=== PATIENT | male | born 1935 | race Caucasian/White ===

== ENCOUNTER 2018-08-31 11:03 | Inpatient (IN) | payer OTHER ==
[2018-08-31 11:23] VITALS: BMI 33.3
--- NOTE | 2018-08-31 11:41 | PDOC ---
History of Present Illness - History of Present Illness Initial Comments: 08/31/18 12:12 The patient is a 83 year old male, DNR, with a significant past medical history of obesity, bedbound, AFib on Coumadin, hypertension, hypothyroidism, stage 3 pressure ulcer of left buttock, neuropathy, groin cellulitis and neoplasm of the skin, who presents to the emergency department with suspicion for aspiration pneumonia this morning. As per usp, the patients breath sounds we poor this morning. The patient denies any complaints at this time. The patient denies chest pain, shortness of breath, headache and dizziness. The patient denies fever, chills, nausea, vomit, diarrhea and constipation. The patient denies dysuria, frequency, urgency and hematuria. Allergies: NKDA <Mariela Ortiz - Last Filed: 08/31/18 13:08> - General History Source: Patient Exam Limitations: No Limitations <Laina Pope - Last Filed: 09/01/18 21:22> - General Chief Complaint: Shortness of Breath Stated Complaint: SOB Time Seen by Provider: 08/31/18 11:41 Past History <Mariela Ortiz - Last Filed: 08/31/18 13:08> - Past Medical History Cardiac Disorders: Yes (AFIB) COPD: No HTN: Yes Other medical history: STAGE 3 LT ISHIAL AREA - Suicide/Smoking/Psychosocial Hx Smoking History: Unknown if ever smoked Have you smoked in the past 12 months: No Information on smoking cessation initiated: No Hx Alcohol Use: No Drug/Substance Use Hx: No <Laina Pope - Last Filed: 09/01/18 21:22> - Past Medical History Allergies/Adverse Reactions: Allergies Allergy/AdvReac Type Severity Reaction Status Date / Time No Known Allergies Allergy Verified 08/31/18 15:40 Home Medications: Ambulatory Orders Aa/Hydrolyzed Collagen, Whey [Lps 15-30 Liquid] 30 ml PO DAILY 09/01/18 Acetaminophen 1,000 mg PO BID 09/01/18 Amlodipine Besylate [Norvasc -] 10 mg PO DAILY 09/01/18 Cholecalciferol (Vitamin D3) [Vitamin D3] 1,000 unit PO DAILY 09/01/18 Gabapentin 600 mg PO BID 09/01/18 Lisinopril 5 mg PO DAILY 09/01/18 Warfarin Sodium [Coumadin] 4 mg PO HS 09/01/18 Review of Systems - Review of Systems Able to Perform ROS?: Yes Comments:: 08/31/18 12:12 CONSTITUTIONAL: Absent: fever, no chills, no fatigue EYES: Absent: visual changes ENT: Absent: ear pain, no sore throat CARDIOVASCULAR: Absent: chest pain, no palpitations RESPIRATORY: Absent: cough, no SOB GASTROINTESTINAL: Absent: abdominal pain, no nausea, no vomiting, no constipation, no diarrhea GENITOURINARY: Absent: dysuria, no frequency, no hematuria MUSCULOSKELETAL: Absent: back pain, no arthralgia, no myalgia SKIN: Absent: rash NEURO: Absent: headache <Mariela Ortiz - Last Filed: 08/31/18 13:08> *Physical Exam - Vital Signs Last Vital Signs Temp Pulse Resp BP Pulse Ox 98.1 F 88 26 H 118/54 L 86 L 08/31/18 11:18 08/31/18 11:18 08/31/18 11:18 08/31/18 11:18 08/31/18 11:18 - Physical Exam Comments: 08/31/18 12:13 GENERAL: The patient is in no acute distress. Awake and Alert. HEAD: Normal with no signs of trauma. EYES: PERRLA, EOMI, sclera anicteric, conjunctiva clear. ENT: Ears normal, nares patent, oropharynx clear without exudates. Moist mucous membranes. NECK: Normal range of motion, supple without lymphadenopathy, JVD, or masses. LUNGS: (+) Rhonchorous breath sounds, gurgling breathing. No wheezes HEART:Regular rate and rhythm, normal S1 and S2 without murmur, rub or gallop. ABDOMEN: Soft, nontender, normoactive bowel sounds. No guarding, no rebound. No masses palpable. GENITAL: (+) penile redness, tenderness, discharge of pus and blood. EXTREMITIES: Normal range of motion, no edema. No clubbing or cyanosis. No erythema, or tenderness. NEUROLOGICAL: Cranial nerves II through XII grossly intact. Normal speech. No focal neurological deficits. MUSCULOSKELETAL: Back non-tender to palpation, no CVA tenderness SKIN: Warm, Dry, normal turgor, no rashes or lesions noted. <Mariela Ortiz - Last Filed: 08/31/18 13:08> - Vital Signs Last Vital Signs Temp Pulse Resp BP Pulse Ox 98.1 F 88 26 H 118/54 L 86 L 08/31/18 11:18 08/31/18 11:18 08/31/18 11:18 08/31/18 11:18 08/31/18 11:18 <Laina Pope - Last Filed: 09/01/18 21:22> Moderate Sedation - Procedure Monitoring Vital Signs: Procedure Monitoring Vital Signs Temperature 98.1 F 08/31/18 11:18 Pulse Rate 88 08/31/18 11:18 Respiratory Rate 26 H 08/31/18 11:18 Blood Pressure 118/54 L 08/31/18 11:18 O2 Sat by Pulse Oximetry (%) 86 L 08/31/18 11:18 <Mariela Ortiz - Last Filed: 08/31/18 13:08> - Procedure Monitoring Vital Signs: Procedure Monitoring Vital Signs Temperature 98.1 F 08/31/18 11:18 Pulse Rate 88 08/31/18 11:18 Respiratory Rate 26 H 08/31/18 11:18 Blood Pressure 118/54 L 08/31/18 11:18 O2 Sat by Pulse Oximetry (%) 86 L 08/31/18 11:18 <Laina Pope - Last Filed: 09/01/18 21:22> ED Treatment Course - LABORATORY CBC & Chemistry Diagram: 08/31/18 12:00 08/31/18 12:00 - ADDITIONAL ORDERS Additional order review: Laboratory Results 08/31/18 12:02 POC Glucometer 115 08/31/18 12:02 POC Glucometer 115 <Mariela Ortiz - Last Filed: 08/31/18 13:08> - LABORATORY CBC & Chemistry Diagram: 09/01/18 07:24 09/01/18 07:24 <Laina Pope - Last Filed: 09/01/18 21:22> Medical Decision Making - Medical Decision Making 08/31/18 12:59 83 yo M who was sent to the ER due to possible aspiration Was noted at the usp to become hypoxic Has audible gurgling The patient denies difficulty breathing Laboratory Tests 08/31/18 08/31/18 08/31/18 12:00 12:00 12:00 WBC 9.2 Hgb 11.9 Hct 36.4 Plt Count 233 PT with INR 30.40 H INR 2.55 H PTT (Actin FS) 40.5 H VBG pH 7.30 L POC VBG pCO2 54.7 H POC VBG pO2 29.5 Mixed VBG HCO3 26.2 H EKG: Afib rate of 87 bpm, axis nml, RBBB, no st elevation 08/31/18 13:39 Laboratory Tests 08/31/18 12:00 Sodium 142 Potassium 4.6 Chloride 108 H Carbon Dioxide 29 BUN 26 H Creatinine 1.0 Random Glucose 119 H Creatine Kinase 38 CK-MB (CK-2) < 1.0 Troponin I 0.03 09/01/18 21:15 CXR read by radiologist as nml Will do CT chest for further evaluation Will admit to hospitalist Clinical impression: Possible aspiration pneumonia, initial presentation <Laina Pope - Last Filed: 09/01/18 21:22> *DC/Admit/Observation/Transfer - Attestations Scribe Attestion: 08/31/18 12:13 Documentation prepared by Mariela Ortiz, acting as medical information specialist for Laina Pope MD <Mariela Ortiz - Last Filed: 08/31/18 13:08> - Discharge Dispostion Decision to Admit order: Yes <Laina Pope - Last Filed: 09/01/18 21:22> Diagnosis at time of Disposition: Aspiration into airway Qualifiers: Encounter type: initial encounter Qualified Code(s): T17.908A - Unspecified foreign body in respiratory tract, part unspecified causing other injury, initial encounter - Discharge Dispostion Condition at time of disposition: Stable
[2018-08-31 12:30] LABS: VENOUS PC02 54.7 mmHg (38-52); VENOUS PH 7.3 (7.32-7.42); VENOUS PO2 29.5 mmHg (28-48)
[2018-08-31 12:32] LABS: BASO % 1.6 % (0-2.0); EOS % 3.9 % (0-4.5); HEMATOCRIT 36.4 % (35.4-49); HEMOGLOBIN 11.9 GM/dL (11.7-16.9); LYMPH % 10.5 % (8-40); MCH 32.4 pg (25.7-33.7); MCHC 32.7 g/dl (32.0-35.9); MEAN CELL VOLUME 98.9 fl (80-96); MEAN PLT VOLUME 10.4 fl (7.5-11.1); MONO % 10.7 % (3.8-10.2); NEUT % 73.3 % (42.8-82.8); PLATELET COUNT 233 K/MM3 (134-434); RBC 3.69 M/mm3 (4.00-5.60); WHITE BLOOD COUNT 9.2 K/mm3 (4.0-10.0)
[2018-08-31 12:45] LABS: INR 2.55 (0.83-1.09); PROTHROMBIN TIME (PATIENT) 30.4 SEC (9.7-13.0)
[2018-08-31 12:47] LABS: ACTIVATED PTT 40.5 SECONDS (25.2-36.5)
[2018-08-31 12:54] LABS: ARTERIAL BLD GAS O2 SATURATION 92.7 % (90-98.9); ARTERIAL BLOOD GAS BASE EXCESS 0.1 meq/l (-2-2); ARTERIAL BLOOD GAS PCO2 42.8 mmHg (35-45); ARTERIAL BLOOD GAS PO2 69.1 mmHg (68-100); ARTERIAL BLOOD GAS pH 7.38 (7.35-7.45)
[2018-08-31 13:28] LABS: ALBUMIN 3.6 g/dl (3.4-5.0); ALK PHOS 97 U/L (45-117); ANION GAP 5 MMOL/L (8-16); BILIRUBIN,TOTAL 0.5 mg/dL (0.2-1); BLOOD UREA NITROGEN 26 mg/dL (7-18); CALCIUM 8.5 mg/dL (8.5-10.1); CHLORIDE 108 mmol/L (98-107); CO2 29 mmol/L (21-32); GLUCOSE,RANDOM 119 mg/dL (74-106); POTASSIUM 4.6 mmol/L (3.5-5.1); SGOT/AST 14 U/L (15-37); SGPT/ALT 18 U/L (13-61); SODIUM 142 mmol/L (136-145)
[2018-08-31 13:29] LABS: ALLENS TEST POSITIVE
--- NOTE | 2018-08-31 14:55 | EKG ---
Test Reason : Blood Pressure : / mmHG Vent. Rate : 087 BPM Atrial Rate : 092 BPM P-R Int : 000 ms QRS Dur : 144 ms QT Int : 396 ms P-R-T Axes : 000 030 -17 degrees QTc Int : 476 ms POOR DATA QUALITY, INTERPRETATION MAY BE ADVERSELY AFFECTED ATRIAL FIBRILLATION RIGHT BUNDLE BRANCH BLOCK ABNORMAL ECG WHEN COMPARED WITH ECG OF 08-MAY-2011 14:14, INVERTED T WAVES HAVE REPLACED NONSPECIFIC T WAVE ABNORMALITY IN INFERIOR LEADS T WAVE INVERSION NOW EVIDENT IN ANTERIOR LEADS Confirmed by JOS PATEL, BESS ([id number]) on 08/31/2018 2:55:01 PM Referred By: Confirmed By:BESS ARGUELLO MD
[2018-08-31] MEDS ORDERED: ALBUTEROL SO4 0.083% IH SOL 2.5 MG/3 ML VIAL.NEB. NEB PRN (16:28)
[2018-08-31] MEDS ORDERED: AMPICILLIN NA/SULBACTAM NA 1.5 GM in SODIUM CHLORIDE 100 ML IVPB SCH (16:30)
[2018-08-31] MEDS ORDERED: predniSONE 20 MG TABLET (UD) PO SCH (16:30)
[2018-08-31] MEDS ORDERED: ACETAMINOPHEN 325 MG TABLET (FP) PO PRN (16:31)
--- NOTE | 2018-08-31 16:35 | PN ---
Teaching Attending Note Name of Resident: Carlos Enrique Deutsch ATTENDING PHYSICIAN STATEMENT I saw and evaluated the patient. I reviewed the resident's note and discussed the case with the resident. I agree with the resident's findings and plan as documented with exceptions below. SUBJECTIVE: 83 yom with PMHx of afib on coumadin, ?neoplasm of skin, stage III decubitus ulcer left buttock, Hypothyroidism, Obesity, bed bound sent from [facility] with concerns for aspiration. After breakfast patient was noted hpyoxic 70s on RA, also noted with audible gurgling, sent to the ED. patient currently oriented to self and place, keeps stating 'no' to most questions. States dyspnea is ongoing for last 20 years with no recent change. Denies any pain. When asked about abdominal pain or genital bleeding, denies the same. Denies, any fevers, chills, chest pain, palpitations, dizziness, abdominal or urinary symptoms. OBJECTIVE: Vital Signs Period Temp Pulse Resp BP Sys/Armstrong Pulse Ox Last 24 Hr 98.1 F-98.5 F 70-88 16-26 118-128/53-80 86-98 Intake & Output 08/28/18 08/29/18 08/30/18 08/31/18 23:59 23:59 23:59 23:59 Weight 232 lb GENERAL: Awake, alert, oriented to self, knows in the hospital, mild tachypnea but able to talk in full sentences HEAD: Normal with no signs of trauma. EYES: Pupils equal, round and reactive to light, extraocular movements intact, sclera anicteric, conjunctiva clear. No lid lag. EARS, NOSE, THROAT: Ears normal, nares patent, oropharynx clear without exudates. Mildly dry mucous membranes. NECK: Soft, supple, no JVD visualized LUNGS: coarse bilateral rales, no wheezing, mild use of acessory muscles of respiration, positive air entry HEART: S1S irregular, further exam limited by audible rales ABDOMEN: Soft, obese, NT throughout, no suprapubic or CVA tenderness, positive bowel sounds MUSCULOSKELETAL: LE bilateral feet dorsiflexion with contracture UPPER EXTREMITIES: 2+ pulses, warm, well-perfused. No cyanosis. No clubbing. No peripheral edema. LOWER EXTREMITIES: bilateral LE feet dorsiflexion with contratures, superficial ulcers over distal interphalangeal joints with scab NEUROLOGICAL: AA, oriented to self, knows is in the hospital, LE power 5/5, UE 4/5 GENITAL: 2 cm circular irregular skin lesion left groin, visible veins, no active bleed or discharge, strawberry like bright red mass over glans penis with bright red blood at the meatus, mild foul smell but no active discharge noted currently, tender when attempt to move foreskin PSYCHIATRIC: Cooperative. Good eye contact. Appropriate mood and affect. SKIN: Warm, dry, normal turgor Active Medications Acetaminophen (Tylenol -) 650 mg PO Q6H PRN PRN Reason: PAIN LEVEL 4 - 6 Albuterol Sulfate (Ventolin 0.083% Nebulizer Soln -) 1 amp NEB Q4H PRN PRN Reason: SHORT OF BREATH/WHEEZING Albuterol/Ipratropium (Duoneb -) 1 amp NEB RQID ARTHUR Cholecalciferol (Vitamin D3 -) 1,000 unit PO DAILY ARTHUR Gabapentin (Neurontin -) 600 mg PO BID ARTHUR Ampicillin Sodium/Sulbactam (Sodium 1.5 gm/ Sodium Chloride) 100 mls @ 200 mls/ hr IVPB Q6H-IV ARTHUR Lisinopril (Prinivil) 5 mg PO DAILY ARTHUR Prednisone (Deltasone -) 60 mg PO DAILY ARTHUR Laboratory Results - last 24 hr 08/31/18 08/31/18 08/31/18 12:00 12:00 12:00 WBC 9.2 RBC 3.69 L Hgb 11.9 Hct 36.4 MCV 98.9 H MCH 32.4 MCHC 32.7 RDW 16.0 H Plt Count 233 MPV 10.4 Absolute Neuts (auto) 6.8 Neutrophils % 73.3 Lymphocytes % 10.5 Monocytes % 10.7 H Eosinophils % 3.9 Basophils % 1.6 Nucleated RBC % 0 PT with INR 30.40 H INR 2.55 H PTT (Actin FS) 40.5 H Anticoagulation Therapy Puncture Site ABG pH ABG pCO2 at Pt Temp ABG pO2 at Pt Temp ABG HCO3 ABG O2 Sat (Measured) ABG O2 Content ABG Base Excess Bradley Test VBG pH 7.30 L POC VBG pCO2 54.7 H POC VBG pO2 29.5 Mixed VBG HCO3 26.2 H O2 Delivery Device Oxygen Flow Rate Vent Mode Vent Rate Mechanical Rate Pressure Support Vent Sodium Potassium Chloride Carbon Dioxide Anion Gap BUN Creatinine Creat Clearance w eGFR POC Glucometer Random Glucose Lactic Acid Calcium Total Bilirubin AST ALT Alkaline Phosphatase Creatine Kinase CK-MB (CK-2) Troponin I Total Protein Albumin Influenza A (Rapid) Influenza B (Rapid) Blood Type Antibody Screen 08/31/18 08/31/18 08/31/18 12:00 12:00 12:00 WBC RBC Hgb Hct MCV MCH MCHC RDW Plt Count MPV Absolute Neuts (auto) Neutrophils % Lymphocytes % Monocytes % Eosinophils % Basophils % Nucleated RBC % PT with INR INR PTT (Actin FS) Anticoagulation Therapy Puncture Site ABG pH ABG pCO2 at Pt Temp ABG pO2 at Pt Temp ABG HCO3 ABG O2 Sat (Measured) ABG O2 Content ABG Base Excess Bradley Test VBG pH POC VBG pCO2 POC VBG pO2 Mixed VBG HCO3 O2 Delivery Device Oxygen Flow Rate Vent Mode Vent Rate Mechanical Rate Pressure Support Vent Sodium 142 Potassium 4.6 Chloride 108 H Carbon Dioxide 29 Anion Gap 5 L BUN 26 H Creatinine 1.0 Creat Clearance w eGFR > 60 POC Glucometer Random Glucose 119 H Lactic Acid 2.0 Calcium 8.5 Total Bilirubin 0.5 AST 14 L ALT 18 Alkaline Phosphatase 97 Creatine Kinase 38 CK-MB (CK-2) < 1.0 Troponin I 0.03 Total Protein 8.0 Albumin 3.6 Influenza A (Rapid) Influenza B (Rapid) Blood Type O POSITIVE Antibody Screen Negative 08/31/18 08/31/18 08/31/18 12:02 12:43 15:48 WBC RBC Hgb Hct MCV MCH MCHC RDW Plt Count MPV Absolute Neuts (auto) Neutrophils % Lymphocytes % Monocytes % Eosinophils % Basophils % Nucleated RBC % PT with INR INR PTT (Actin FS) Anticoagulation Therapy No Result Required. Puncture Site Right radial ABG pH 7.38 ABG pCO2 at Pt Temp 42.8 ABG pO2 at Pt Temp 69.1 ABG HCO3 24.8 ABG O2 Sat (Measured) 92.7 ABG O2 Content 15.2 ABG Base Excess 0.1 Bradley Test Positive VBG pH POC VBG pCO2 POC VBG pO2 Mixed VBG HCO3 O2 Delivery Device No Result Required. Oxygen Flow Rate Yes Vent Mode No Result Required. Vent Rate No Result Required. Mechanical Rate No Result Required. Pressure Support Vent No Result Required. Sodium Potassium Chloride Carbon Dioxide Anion Gap BUN Creatinine Creat Clearance w eGFR POC Glucometer 115 Random Glucose Lactic Acid Calcium Total Bilirubin AST ALT Alkaline Phosphatase Creatine Kinase CK-MB (CK-2) Troponin I Total Protein Albumin Influenza A (Rapid) Negative Influenza B (Rapid) Negative Blood Type Antibody Screen CXR image and results reviewed CT Chest/A/P results pending EKG afib, RBBB ASSESSMENT AND PLAN: 83 yom with PMHx of afib on coumadin, ?neoplasm of skin, stage III decubitus ulcer left buttock, Hypothyroidism, Obesity, bed bound sent from [facility] admitted with concerns for aspiration -Acute hypoxic respiratory failure -Suspect aspiration PNA -?Underlying COPD with exacerbation (10 pack year smoking history) vs Acute bronchospastic disease -Left groin skin lesion, ?Neoplasm -Penile mass with bleeding -Afib on coumadin -HTN -Stage III decubitus ulcer left buttock -Hypothyroidism -Obesity Plan: CT chest, emperic Unasyn. Sputum cx if available. Influenza swab neg. Prednisone, standing and prn nebs, Oxygen suppl. Aspiration precautions, speech/swallow eval. Unclear if penile lesion new, CT A/P. Urology input. Monitor for retention. Per NH, left groin lesion old, patient ?declined further work up. Continue norvasc. Gentle hydration today. Hold ACEi for today. Hold coumadin today pending urology input and further penile bleeding. Resume based on clinical course. DVTPPX with SCDs Code status: DNR, per [place] records. per Patient and HCP, ok with intubation. Disposition admit to inpatient with IV antibiotics, close monitoring of respiratory status and urology input. Plan discussed with patient in detail, all questions answered. Care co-ordinated with ED. Total admit time 65 min.
--- NOTE | 2018-08-31 17:02 | HP ---
CHIEF COMPLAINT: sob PCP: dr urena. [facility] HISTORY OF PRESENT ILLNESS:83/y/o M with PMH of obesity, htn, afib on coumadn 4mg daily, pressure ulcers on left buttock, neuropathy, chronic groin ulcer, neoplasm of skin, penile growth was sent in [facility] for SOB likley from aspiration. Pt states that he has chroic cough, shronic shortness of breath from many years and nothing changed. But in morning alf found him to desaturate and sent him to hospital. In hospital his saturation decreased to 79 and was started on 4L of o2 and saturation increased to 92%. Pt also have a h/o groin ulcer from years for which he refused to get work up in past. Pt also have pressure sores from many years. As per record pt also have a h/o skin cancer but dont know whic type ER course was notable for: (1)cbc, cmp, ct chest abdomen Recent Travel: no PAST MEDICAL HISTORY: as above PAST SURGICAL HISTORY:none Social History: Smokin/2 pack for 20 years Alcohol:no Drugs: no Family History: Allergies No Known Allergies Allergy (Verified 08/31/18 15:40) HOME MEDICATIONS: REVIEW OF SYSTEMS CONSTITUTIONAL: Absent: fever, chills, diaphoresis, generalized weakness, HEENT: Absent: rhinorrhea, nasal congestion, throat pain, throat swelling, CARDIOVASCULAR: Absent: chest pain, syncope, palpitations, irregular heart rate, RESPIRATORY: Absent: cough, shortness of breath, dyspnea with exertion, orthopnea, wheezing, stridor, hemoptysis GASTROINTESTINAL: Absent: abdominal pain, abdominal distension, nausea, vomiting, diarrhea, constipation, melena, hematochezia GENITOURINARY: Absent: dysuria, frequency, urgency, hesitancy, growth on penis bleeding NEUROLOGIC: Absent: headache, focal weakness or paresthesias, PSYCHIATRIC: Absent: anxiety, depression, PHYSICAL EXAMINATION Vital Signs - 24 hr 08/31/18 08/31/18 08/31/18 11:18 12:29 12:32 Temperature 98.1 F 98.5 F 98.5 F Pulse Rate 88 88 Pulse Rate [ 82 Left Apical] Respiratory 26 H 16 16 Rate Blood Pressure 118/54 L 128/53 L Blood Pressure 128/53 L [Left Arm] O2 Sat by Pulse 86 L 98 98 Oximetry (%) 08/31/18 16:07 Temperature Pulse Rate Pulse Rate [ 70 Left Apical] Respiratory 16 Rate Blood Pressure Blood Pressure 120/80 [Left Arm] O2 Sat by Pulse 95 Oximetry (%) GENERAL: Awake, alert, and fully oriented, in no acute distress. HEAD: Normal with no signs of trauma. EYES: Pupils equal, round and reactive to light, EARS, NOSE, THROAT: Ears normal, nares patent, oropharynx clear without exudates. Moist mucous membranes. NECK: Normal range of motion, LUNGS: b/l wheezing, crackels more on right side than left HEART: Regular rate and rhythm, normal S1 and S2 without murmur, ABDOMEN: Soft, nontender, not distended, normoactive bowel sounds, no guarding, no rebound, no masses. growth on penis with bleed, chronic ulcer on right groin UPPER EXTREMITIES: 2+ pulses, warm, well-perfused. LOWER EXTREMITIES: warm, well-perfused. NEUROLOGICAL: bedbound PSYCHIATRIC: Cooperative. - SKIN: Warm, dry, Laboratory Results - last 24 hr 08/31/18 08/31/18 08/31/18 12:00 12:00 12:00 WBC 9.2 RBC 3.69 L Hgb 11.9 Hct 36.4 MCV 98.9 H MCH 32.4 MCHC 32.7 RDW 16.0 H Plt Count 233 MPV 10.4 Absolute Neuts (auto) 6.8 Neutrophils % 73.3 Lymphocytes % 10.5 Monocytes % 10.7 H Eosinophils % 3.9 Basophils % 1.6 Nucleated RBC % 0 PT with INR 30.40 H INR 2.55 H PTT (Actin FS) 40.5 H Anticoagulation Therapy Puncture Site ABG pH ABG pCO2 at Pt Temp ABG pO2 at Pt Temp ABG HCO3 ABG O2 Sat (Measured) ABG O2 Content ABG Base Excess Bradley Test VBG pH 7.30 L POC VBG pCO2 54.7 H POC VBG pO2 29.5 Mixed VBG HCO3 26.2 H O2 Delivery Device Oxygen Flow Rate Vent Mode Vent Rate Mechanical Rate Pressure Support Vent Sodium Potassium Chloride Carbon Dioxide Anion Gap BUN Creatinine Creat Clearance w eGFR POC Glucometer Random Glucose Lactic Acid Calcium Total Bilirubin AST ALT Alkaline Phosphatase Creatine Kinase CK-MB (CK-2) Troponin I Total Protein Albumin Influenza A (Rapid) Influenza B (Rapid) Blood Type Antibody Screen 08/31/18 08/31/18 08/31/18 12:00 12:00 12:00 WBC RBC Hgb Hct MCV MCH MCHC RDW Plt Count MPV Absolute Neuts (auto) Neutrophils % Lymphocytes % Monocytes % Eosinophils % Basophils % Nucleated RBC % PT with INR INR PTT (Actin FS) Anticoagulation Therapy Puncture Site ABG pH ABG pCO2 at Pt Temp ABG pO2 at Pt Temp ABG HCO3 ABG O2 Sat (Measured) ABG O2 Content ABG Base Excess Bradley Test VBG pH POC VBG pCO2 POC VBG pO2 Mixed VBG HCO3 O2 Delivery Device Oxygen Flow Rate Vent Mode Vent Rate Mechanical Rate Pressure Support Vent Sodium 142 Potassium 4.6 Chloride 108 H Carbon Dioxide 29 Anion Gap 5 L BUN 26 H Creatinine 1.0 Creat Clearance w eGFR > 60 POC Glucometer Random Glucose 119 H Lactic Acid 2.0 Calcium 8.5 Total Bilirubin 0.5 AST 14 L ALT 18 Alkaline Phosphatase 97 Creatine Kinase 38 CK-MB (CK-2) < 1.0 Troponin I 0.03 Total Protein 8.0 Albumin 3.6 Influenza A (Rapid) Influenza B (Rapid) Blood Type O POSITIVE Antibody Screen Negative 08/31/18 08/31/18 08/31/18 12:02 12:43 15:48 WBC RBC Hgb Hct MCV MCH MCHC RDW Plt Count MPV Absolute Neuts (auto) Neutrophils % Lymphocytes % Monocytes % Eosinophils % Basophils % Nucleated RBC % PT with INR INR PTT (Actin FS) Anticoagulation Therapy No Result Required. Puncture Site Right radial ABG pH 7.38 ABG pCO2 at Pt Temp 42.8 ABG pO2 at Pt Temp 69.1 ABG HCO3 24.8 ABG O2 Sat (Measured) 92.7 ABG O2 Content 15.2 ABG Base Excess 0.1 Bradley Test Positive VBG pH POC VBG pCO2 POC VBG pO2 Mixed VBG HCO3 O2 Delivery Device No Result Required. Oxygen Flow Rate Yes Vent Mode No Result Required. Vent Rate No Result Required. Mechanical Rate No Result Required. Pressure Support Vent No Result Required. Sodium Potassium Chloride Carbon Dioxide Anion Gap BUN Creatinine Creat Clearance w eGFR POC Glucometer 115 Random Glucose Lactic Acid Calcium Total Bilirubin AST ALT Alkaline Phosphatase Creatine Kinase CK-MB (CK-2) Troponin I Total Protein Albumin Influenza A (Rapid) Negative Influenza B (Rapid) Negative Blood Type Antibody Screen ASSESSMENT/PLAN: 83 yom with PMHx of afib on coumadin, ?neoplasm of skin, stage III decubitus ulcer left buttock, Hypothyroidism, Obesity, bed bound sent from [facility] admitted with concerns for aspiration -Acute hypoxic respiratory failure: likely from pneumonia aspiration vs healthcare with ? copd exabration ct chest emepric unasyn and vanco sputum culturs infleunza swab prednisone o2 to keep spo2>90 aspiration precaution speech ans swallow penile lesion with groin ulcer ( as per record ulcer is old) CT abdomen and pelvis urology consult hold coumadin for now as its bleeding moitor retention -Afib on coumadin on coumadin 4mg daily hold today echo -HTN hold andrzej continue amlodipine - Stage III decubitus ulcer left buttock change position q2h air mattress -Obesity fluid d51/2ns 75 ml/hr electrolyte repeat in am nutrition:regular low salt diet dvt pro on coumadin gi pro: not required code DNR but ok with intubation. dispo tele Visit type - Emergency Visit Emergency Visit: Yes ED Registration Date: 08/31/18 Care time: The patient presented to the Emergency Department on the above date and was hospitalized for further evaluation of their emergent condition. - New Patient This patient is new to me today: Yes Date on this admission: 08/31/18 - Critical Care Critical Care patient: No
[2018-08-31] MEDS ORDERED: VANCOMYCIN 1 GM in D5W (PRE-DOCKED) 1,000 MG/250 ML IVPB ONE (17:32)
[2018-08-31] MEDS ORDERED: predniSONE 20 MG TABLET (UD) ONE (18:17)
[2018-08-31] MEDS ORDERED: VANCOMYCIN 1 GRAM (PRE-DOCKED) 1,000 MG/250 ML BAG IVPB ONE (18:17)
[2018-08-31] MEDS ORDERED: ALBUTEROL SO4 2.5/IPRATROPIUM 0.5 INH SOL 3 ML VIAL.NEB. NEB ONE (21:02)
[2018-08-31] MEDS ORDERED: GABAPENTIN 100 MG CAPSULE (FP) ONE (21:03)
[2018-08-31] MEDS: AMPICILLIN NA/SULBACTAM NA 1.5 GM in SODIUM CHLORIDE 100 ML IVPB SCH (21:19)
[2018-08-31] MEDS: ALBUTEROL SO4 2.5/IPRATROPIUM 0.5 INH SOL 3 ML VIAL.NEB. NEB SCH (21:19)
[2018-08-31] MEDS: GABAPENTIN 300 MG CAPSULE (FP) PO SCH (21:19)
[2018-08-31] MEDS: POLYETHYLENE GLYCOL 3350 119 GM BTL PO SCH (21:19)
[2018-09-01] MEDS: AMPICILLIN NA/SULBACTAM NA 1.5 GM in SODIUM CHLORIDE 100 ML IVPB SCH (00:42)
[2018-09-01] MEDS ORDERED: ALBUTEROL SO4 2.5/IPRATROPIUM 0.5 INH SOL 3 ML VIAL.NEB. NEB ONE ×2 (08:23→15:28)
[2018-09-01] MEDS: ALBUTEROL SO4 2.5/IPRATROPIUM 0.5 INH SOL 3 ML VIAL.NEB. NEB SCH ×3 (08:28→18:02)
[2018-09-01 08:30] LABS: INR 3.51 (0.83-1.09); PROTHROMBIN TIME (PATIENT) 41.9 SEC (9.7-13.0)
[2018-09-01 08:31] LABS: ALK PHOS 72 U/L (45-117); ANION GAP 9 MMOL/L (8-16); BILIRUBIN,TOTAL 0.6 mg/dL (0.2-1); BLOOD UREA NITROGEN 42 mg/dL (7-18); CALCIUM 7.9 mg/dL (8.5-10.1); CHLORIDE 109 mmol/L (98-107); CHOLESTEROL 104 mg/dL (50-200); CO2 24 mmol/L (21-32); CREATININE 1.7 mg/dL (0.55-1.3); GLUCOSE,RANDOM 134 mg/dL (74-106); HDL CHOLESTEROL 35 mg/dL (40-60); MAGNESIUM 2.3 mg/dL (1.8-2.4); PHOSPHOROUS 3.6 mg/dL (2.5-4.9); POTASSIUM 4.6 mmol/L (3.5-5.1); SGOT/AST 20 U/L (15-37); SGPT/ALT 14 U/L (13-61); SODIUM 142 mmol/L (136-145); TRIGLYCERIDES 98 mg/dL (0-150)
[2018-09-01 08:45] LABS: BASO % 0.2 % (0-2.0); HEMATOCRIT 32.3 % (35.4-49); HEMOGLOBIN 10.6 GM/dL (11.7-16.9); LYMPH % 5.2 % (8-40); MCH 32.3 pg (25.7-33.7); MCHC 32.8 g/dl (32.0-35.9); MEAN CELL VOLUME 98.5 fl (80-96); MEAN PLT VOLUME 10.5 fl (7.5-11.1); NEUT % 87.6 % (42.8-82.8); PLATELET COUNT 210 K/MM3 (134-434); RBC 3.28 M/mm3 (4.00-5.60); RDW 15.7 % (11.9-15.9); WHITE BLOOD COUNT 20.9 K/mm3 (4.0-10.0)
[2018-09-01] MEDS ORDERED: LACTATED RINGERS SOLUTION 1,000 ML/1,000 ML INFUS.BAG IV SCH (09:45)
[2018-09-01] MEDS ORDERED: PIPERACILLIN/TAZOB 3.375 GM 3.375 GM/50 ML BAG IVPB ONE ×2 (09:53→17:45)
[2018-09-01] MEDS ORDERED: methylPREDNISolone NA SUCC 40 MG/1 ML VIAL ONE ×2 (09:53→15:28)
[2018-09-01] MEDS: methylPREDNISolone NA SUCC 40 MG/1 ML VIAL IVPUSH SCH ×2 (09:55→15:26)
--- NOTE | 2018-09-01 09:57 | PN ---
Teaching Attending Note Name of Resident: Carlos Enrique Deutsch ATTENDING PHYSICIAN STATEMENT I saw and evaluated the patient. I reviewed the resident's note and discussed the case with the resident. I agree with the resident's findings and plan as documented with exceptions below. SUBJECTIVE: Patient seen and examined. Overall unchanged, denies pain, refuses to answer questions otherwise. OBJECTIVE: Vital Signs Period Temp Pulse Resp BP Sys/Armstrong Pulse Ox Last 24 Hr 98.1 F-98.5 F 70-88 16-26 118-152/45-80 86-98 Intake & Output 08/29/18 08/30/18 08/31/18 09/01/18 23:59 23:59 23:59 23:59 Weight 232 lb General: sitting in bed, lethargic, coarse rales Chest: bilateral coarse rales, no wheezing Coarse cough, thick yellowish secretions suctions Abdomen:soft, obese, NT, no suprapubic or CVA tenderness Extremities: no edema Genital: penile lesions with scant red blood, left groin lesion unchanged Home Medications Medication Instructions Recorded Aa/Hydrolyzed Collagen, Whey [Lps 30 ml PO DAILY 09/01/18 15-30 Liquid] Acetaminophen 1,000 mg PO BID 09/01/18 Amlodipine Besylate [Norvasc -] 10 mg PO DAILY 09/01/18 Cholecalciferol (Vitamin D3) 1,000 unit PO DAILY 09/01/18 [Vitamin D3] Gabapentin 600 mg PO BID 09/01/18 Lisinopril 5 mg PO DAILY 09/01/18 Warfarin Sodium [Coumadin] 4 mg PO HS 09/01/18 Active Medications Acetaminophen (Tylenol -) 650 mg PO Q6H PRN PRN Reason: PAIN LEVEL 4 - 6 Albuterol Sulfate (Ventolin 0.083% Nebulizer Soln -) 1 amp NEB Q4H PRN PRN Reason: SHORT OF BREATH/WHEEZING Albuterol/Ipratropium (Duoneb -) 1 amp NEB RQID [facility] Last Admin: 09/01/18 08:28 Dose: 1 amp Amlodipine Besylate (Norvasc -) 10 mg PO DAILY [facility] Cholecalciferol (Vitamin D3 -) 1,000 unit PO DAILY [facility] Gabapentin (Neurontin -) 600 mg PO BID [facility] Last Admin: 08/31/18 21:19 Dose: 600 mg Piperacillin Sod/Tazobactam (Sod 3.375 gm/ Dextrose) 50 mls @ 100 mls/hr IVPB Q8H-IV ARTHUR; Protocol Piperacillin Sod/Tazobactam (Sod 3.375 gm/ Dextrose) 50 mls @ 100 mls/hr IVPB Q8H-IV ARTHUR; Protocol Stop: 09/02/18 02:29 Last Admin: 09/01/18 09:55 Dose: 100 mls/hr Lactated Ringer's (Lactated Ringers Solution) 1,000 ml in 1,000 mls @ 75 mls/ hr IV ASDIR ARTHUR Last Admin: 09/01/18 09:55 Dose: 75 mls/hr Methylprednisolone Sodium Succinate (Solu-Medrol -) 40 mg IVPUSH Q6H-IV ARTHUR Last Admin: 09/01/18 09:55 Dose: 40 mg Polyethylene Glycol (Miralax (For Daily Use) -) 17 gm PO BID ARTHUR Last Admin: 08/31/18 21:19 Dose: 17 mg Laboratory Results - last 24 hr 08/31/18 08/31/18 08/31/18 12:00 12:00 12:00 WBC 9.2 RBC 3.69 L Hgb 11.9 Hct 36.4 MCV 98.9 H MCH 32.4 MCHC 32.7 RDW 16.0 H Plt Count 233 MPV 10.4 Absolute Neuts (auto) 6.8 Neutrophils % 73.3 Lymphocytes % 10.5 Monocytes % 10.7 H Eosinophils % 3.9 Basophils % 1.6 Nucleated RBC % 0 PT with INR 30.40 H INR 2.55 H PTT (Actin FS) 40.5 H Anticoagulation Therapy Puncture Site ABG pH ABG pCO2 at Pt Temp ABG pO2 at Pt Temp ABG HCO3 ABG O2 Sat (Measured) ABG O2 Content ABG Base Excess Bradley Test VBG pH 7.30 L POC VBG pCO2 54.7 H POC VBG pO2 29.5 Mixed VBG HCO3 26.2 H O2 Delivery Device Oxygen Flow Rate Vent Mode Vent Rate Mechanical Rate Pressure Support Vent Sodium Potassium Chloride Carbon Dioxide Anion Gap BUN Creatinine Creat Clearance w eGFR POC Glucometer Random Glucose Lactic Acid Calcium Phosphorus Magnesium Total Bilirubin AST ALT Alkaline Phosphatase Creatine Kinase CK-MB (CK-2) Troponin I Total Protein Albumin Triglycerides Cholesterol Total LDL Cholesterol HDL Cholesterol Influenza A (Rapid) Influenza B (Rapid) Blood Type Antibody Screen 08/31/18 08/31/18 08/31/18 12:00 12:00 12:00 WBC RBC Hgb Hct MCV MCH MCHC RDW Plt Count MPV Absolute Neuts (auto) Neutrophils % Lymphocytes % Monocytes % Eosinophils % Basophils % Nucleated RBC % PT with INR INR PTT (Actin FS) Anticoagulation Therapy Puncture Site ABG pH ABG pCO2 at Pt Temp ABG pO2 at Pt Temp ABG HCO3 ABG O2 Sat (Measured) ABG O2 Content ABG Base Excess Bradley Test VBG pH POC VBG pCO2 POC VBG pO2 Mixed VBG HCO3 O2 Delivery Device Oxygen Flow Rate Vent Mode Vent Rate Mechanical Rate Pressure Support Vent Sodium 142 Potassium 4.6 Chloride 108 H Carbon Dioxide 29 Anion Gap 5 L BUN 26 H Creatinine 1.0 Creat Clearance w eGFR > 60 POC Glucometer Random Glucose 119 H Lactic Acid 2.0 Calcium 8.5 Phosphorus Magnesium Total Bilirubin 0.5 AST 14 L ALT 18 Alkaline Phosphatase 97 Creatine Kinase 38 CK-MB (CK-2) < 1.0 Troponin I 0.03 Total Protein 8.0 Albumin 3.6 Triglycerides Cholesterol Total LDL Cholesterol HDL Cholesterol Influenza A (Rapid) Influenza B (Rapid) Blood Type O POSITIVE Antibody Screen Negative 08/31/18 08/31/18 08/31/18 12:02 12:43 15:00 WBC RBC Hgb Hct MCV MCH MCHC RDW Plt Count MPV Absolute Neuts (auto) Neutrophils % Lymphocytes % Monocytes % Eosinophils % Basophils % Nucleated RBC % PT with INR INR PTT (Actin FS) Anticoagulation Therapy No Result Required. Puncture Site Right radial ABG pH 7.38 ABG pCO2 at Pt Temp 42.8 ABG pO2 at Pt Temp 69.1 ABG HCO3 24.8 ABG O2 Sat (Measured) 92.7 ABG O2 Content 15.2 ABG Base Excess 0.1 Bradley Test Positive VBG pH POC VBG pCO2 POC VBG pO2 Mixed VBG HCO3 O2 Delivery Device No Result Required. Oxygen Flow Rate Yes Vent Mode No Result Required. Vent Rate No Result Required. Mechanical Rate No Result Required. Pressure Support Vent No Result Required. Sodium Potassium Chloride Carbon Dioxide Anion Gap BUN Creatinine Creat Clearance w eGFR POC Glucometer 115 Random Glucose Lactic Acid Calcium Phosphorus Magnesium Total Bilirubin AST ALT Alkaline Phosphatase Creatine Kinase CK-MB (CK-2) Troponin I Total Protein Albumin Triglycerides Cholesterol Total LDL Cholesterol HDL Cholesterol Influenza A (Rapid) Influenza B (Rapid) Blood Type O POSITIVE Antibody Screen 08/31/18 09/01/18 09/01/18 15:48 06:44 07:24 WBC 20.9 H RBC 3.28 L Hgb 10.6 L Hct 32.3 L MCV 98.5 H MCH 32.3 MCHC 32.8 RDW 15.7 Plt Count 210 MPV 10.5 Absolute Neuts (auto) 18.3 H Neutrophils % 87.6 H Lymphocytes % 5.2 L D Monocytes % 7.0 Eosinophils % 0.0 D Basophils % 0.2 Nucleated RBC % 0 PT with INR INR PTT (Actin FS) Anticoagulation Therapy Puncture Site ABG pH ABG pCO2 at Pt Temp ABG pO2 at Pt Temp ABG HCO3 ABG O2 Sat (Measured) ABG O2 Content ABG Base Excess Bradley Test VBG pH POC VBG pCO2 POC VBG pO2 Mixed VBG HCO3 O2 Delivery Device Oxygen Flow Rate Vent Mode Vent Rate Mechanical Rate Pressure Support Vent Sodium Potassium Chloride Carbon Dioxide Anion Gap BUN Creatinine Creat Clearance w eGFR POC Glucometer 158 Random Glucose Lactic Acid Calcium Phosphorus Magnesium Total Bilirubin AST ALT Alkaline Phosphatase Creatine Kinase CK-MB (CK-2) Troponin I Total Protein Albumin Triglycerides Cholesterol Total LDL Cholesterol HDL Cholesterol Influenza A (Rapid) Negative Influenza B (Rapid) Negative Blood Type Antibody Screen 09/01/18 09/01/18 07:24 07:24 WBC RBC Hgb Hct MCV MCH MCHC RDW Plt Count MPV Absolute Neuts (auto) Neutrophils % Lymphocytes % Monocytes % Eosinophils % Basophils % Nucleated RBC % PT with INR 41.90 H INR 3.51 H PTT (Actin FS) Anticoagulation Therapy Puncture Site ABG pH ABG pCO2 at Pt Temp ABG pO2 at Pt Temp ABG HCO3 ABG O2 Sat (Measured) ABG O2 Content ABG Base Excess Bradley Test VBG pH POC VBG pCO2 POC VBG pO2 Mixed VBG HCO3 O2 Delivery Device Oxygen Flow Rate Vent Mode Vent Rate Mechanical Rate Pressure Support Vent Sodium 142 Potassium 4.6 Chloride 109 H Carbon Dioxide 24 Anion Gap 9 BUN 42 H Creatinine 1.7 H Creat Clearance w eGFR 38.59 POC Glucometer Random Glucose 134 H Lactic Acid Calcium 7.9 L Phosphorus 3.6 Magnesium 2.3 Total Bilirubin 0.6 AST 20 ALT 14 Alkaline Phosphatase 72 Creatine Kinase CK-MB (CK-2) Troponin I 0.08 H Total Protein 7.0 Albumin 3.0 L Triglycerides 98 Cholesterol 104 Total LDL Cholesterol 55 HDL Cholesterol 35 L Influenza A (Rapid) Influenza B (Rapid) Blood Type Antibody Screen CXR results reviewed CT chest results reviewed ASSESSMENT AND PLAN: ASSESSMENT AND PLAN: 83 yom with PMHx of afib on coumadin, ?neoplasm of skin, stage III decubitus ulcer left buttock, Hypothyroidism, Obesity, bed bound sent from [facility] admitted with concerns for aspiration -Acute hypoxic respiratory failure -Multifocal Aspiration PNA -?Underlying COPD with exacerbation (10 pack year smoking history) vs Acute bronchospastic disease -DIANNA, r/o retention from penile lesion vs hypovolumia+/- sepsis, vs Contrast induced nephropathy. -Left groin skin lesion, ?Neoplasm -Penile mass with bleeding -Coumadin coagulopathy -Afib on coumadin -Elevated Troponin, suspected demand type II NSTEMI from above -HTN -Stage III decubitus ulcer left buttock -Hypothyroidism -Obesity Plan: Poor effort, patient unable to bring up secretions, thick yellowish secretions suctioned at bedside. CT chest reviewed Change abx to Zosyn, change to IV steroids, standing and prn nebs. ID/pulmonary input. s/p vancomycin x 1 in ED. Sputum cx/PNA studies, however presentation highly suspicious for aspiration. Chest PT. Extended discussion with patient and HCP, who confirm no CPR but ok with intubation, awaiting palliative care input. Monitor closely. Bladder scan. Urology input, Dr. Bolton contacted, await input. Renal consult. Renal US. Bladder US noted. Renal dosing of meds, avoid nephrotoxins. s/p contrast in ED. IV hydration with close monitoring of volume status. Cardiology consult, follow up 2D echo Hold coumadin, Monitor bleed from penile lesion closely. Amlodipine. Hold ACEi DVTPPX INR supratherapeutic Dispo prognosis guarded, low threshold for intubation and escalation of care. Plan discussed with RN in ED, all questions answered.
[2018-09-01] MEDS ORDERED: amLODIPine BESYLATE 10 MG TABLET (FP) PO SCH (10:00)
[2018-09-01] MEDS ORDERED: LISINOPRIL 5 MG TABLET (FP) PO SCH (10:00)
[2018-09-01] MEDS ORDERED: CHOLECALCIFEROL (VITAMIN D3) 1,000 UNIT TABLET (FP) PO SCH (10:00)
[2018-09-01] MEDS ORDERED: PIPERACILLIN/TAZOB 3.375 GM 3.375 GM in DEXTROSE 5%-WATER - 50 ML IVPB SCH ×2 (10:00→18:00)
[2018-09-01 11:07] LABS: N-TERMINAL BNP 10176.9 pg/ml (5-450)
--- NOTE | 2018-09-01 11:18 | PN ---
Progress Note (short form) - Note Progress Note: ID CONSULT DICTATED HCAP V. ASPIRATION R/O SEPSIS SECONDARY TO PNEUMONIA LEUKOCYTOSIS MULTIFACTORIAL ( PNEUMONIA, STEROIDS ) AZOTEMIA PENDING C/S EMPIRIC ZOSYN
--- NOTE | 2018-09-01 11:28 | PN ---
Physical Exam: SUBJECTIVE: Patient seen and examined pt lying in bed in er no significant cahneg overnight pt has poor cough effort. suction done bed side but nothing came out. denies any shortness of breath. Pt removes his nasal canula. pt started on venturi mask as found to desaturate on nasal canula and was also unable to hold nasal canula OBJECTIVE: Vital Signs Period Temp Pulse Resp BP Sys/Armstrong Pulse Ox Last 24 Hr 98.1 F-98.5 F 70-88 16-19 120-152/45-80 94-98 GENERAL: Awake, alert, and fully oriented, in no acute distress. HEAD: Normal with no signs of trauma. EYES: Pupils equal, round and reactive to light, EARS, NOSE, THROAT: oropharynx clear without exudates. dry mucous membranes. NECK: Normal range of motion, no jvp distension LUNGS: b/l wheezing, crackels b/l likely because pt is not coughing out his secretions HEART: Regular rate and rhythm, normal S1 and S2 without murmur, ABDOMEN: Soft, nontender, not distended, normoactive bowel sounds, no guarding, no rebound, no masses. growth on penis with bleed, chronic ulcer on right groin UPPER EXTREMITIES: 2+ pulses, warm, well-perfused. LOWER EXTREMITIES: warm, well-perfused. no edema NEUROLOGICAL: bedbound PSYCHIATRIC: Cooperative. - SKIN: Warm, dry, Laboratory Results - last 24 hr 08/31/18 08/31/18 08/31/18 12:00 12:00 12:00 WBC 9.2 RBC 3.69 L Hgb 11.9 Hct 36.4 MCV 98.9 H MCH 32.4 MCHC 32.7 RDW 16.0 H Plt Count 233 MPV 10.4 Absolute Neuts (auto) 6.8 Neutrophils % 73.3 Lymphocytes % 10.5 Monocytes % 10.7 H Eosinophils % 3.9 Basophils % 1.6 Nucleated RBC % 0 PT with INR 30.40 H INR 2.55 H PTT (Actin FS) 40.5 H Anticoagulation Therapy Puncture Site ABG pH ABG pCO2 at Pt Temp ABG pO2 at Pt Temp ABG HCO3 ABG O2 Sat (Measured) ABG O2 Content ABG Base Excess Bradley Test VBG pH 7.30 L POC VBG pCO2 54.7 H POC VBG pO2 29.5 Mixed VBG HCO3 26.2 H O2 Delivery Device Oxygen Flow Rate Vent Mode Vent Rate Mechanical Rate Pressure Support Vent Sodium Potassium Chloride Carbon Dioxide Anion Gap BUN Creatinine Creat Clearance w eGFR POC Glucometer Random Glucose Lactic Acid Calcium Phosphorus Magnesium Total Bilirubin AST ALT Alkaline Phosphatase Creatine Kinase CK-MB (CK-2) Troponin I B-Natriuretic Peptide Total Protein Albumin Triglycerides Cholesterol Total LDL Cholesterol HDL Cholesterol Influenza A (Rapid) Influenza B (Rapid) Blood Type Antibody Screen 08/31/18 08/31/18 08/31/18 12:00 12:00 12:00 WBC RBC Hgb Hct MCV MCH MCHC RDW Plt Count MPV Absolute Neuts (auto) Neutrophils % Lymphocytes % Monocytes % Eosinophils % Basophils % Nucleated RBC % PT with INR INR PTT (Actin FS) Anticoagulation Therapy Puncture Site ABG pH ABG pCO2 at Pt Temp ABG pO2 at Pt Temp ABG HCO3 ABG O2 Sat (Measured) ABG O2 Content ABG Base Excess Bradley Test VBG pH POC VBG pCO2 POC VBG pO2 Mixed VBG HCO3 O2 Delivery Device Oxygen Flow Rate Vent Mode Vent Rate Mechanical Rate Pressure Support Vent Sodium 142 Potassium 4.6 Chloride 108 H Carbon Dioxide 29 Anion Gap 5 L BUN 26 H Creatinine 1.0 Creat Clearance w eGFR > 60 POC Glucometer Random Glucose 119 H Lactic Acid 2.0 Calcium 8.5 Phosphorus Magnesium Total Bilirubin 0.5 AST 14 L ALT 18 Alkaline Phosphatase 97 Creatine Kinase 38 CK-MB (CK-2) < 1.0 Troponin I 0.03 B-Natriuretic Peptide Total Protein 8.0 Albumin 3.6 Triglycerides Cholesterol Total LDL Cholesterol HDL Cholesterol Influenza A (Rapid) Influenza B (Rapid) Blood Type O POSITIVE Antibody Screen Negative 08/31/18 08/31/18 08/31/18 12:02 12:43 15:00 WBC RBC Hgb Hct MCV MCH MCHC RDW Plt Count MPV Absolute Neuts (auto) Neutrophils % Lymphocytes % Monocytes % Eosinophils % Basophils % Nucleated RBC % PT with INR INR PTT (Actin FS) Anticoagulation Therapy No Result Required. Puncture Site Right radial ABG pH 7.38 ABG pCO2 at Pt Temp 42.8 ABG pO2 at Pt Temp 69.1 ABG HCO3 24.8 ABG O2 Sat (Measured) 92.7 ABG O2 Content 15.2 ABG Base Excess 0.1 Bradley Test Positive VBG pH POC VBG pCO2 POC VBG pO2 Mixed VBG HCO3 O2 Delivery Device No Result Required. Oxygen Flow Rate Yes Vent Mode No Result Required. Vent Rate No Result Required. Mechanical Rate No Result Required. Pressure Support Vent No Result Required. Sodium Potassium Chloride Carbon Dioxide Anion Gap BUN Creatinine Creat Clearance w eGFR POC Glucometer 115 Random Glucose Lactic Acid Calcium Phosphorus Magnesium Total Bilirubin AST ALT Alkaline Phosphatase Creatine Kinase CK-MB (CK-2) Troponin I B-Natriuretic Peptide Total Protein Albumin Triglycerides Cholesterol Total LDL Cholesterol HDL Cholesterol Influenza A (Rapid) Influenza B (Rapid) Blood Type O POSITIVE Antibody Screen 08/31/18 09/01/18 09/01/18 15:48 06:44 07:24 WBC 20.9 H RBC 3.28 L Hgb 10.6 L Hct 32.3 L MCV 98.5 H MCH 32.3 MCHC 32.8 RDW 15.7 Plt Count 210 MPV 10.5 Absolute Neuts (auto) 18.3 H Neutrophils % 87.6 H Lymphocytes % 5.2 L D Monocytes % 7.0 Eosinophils % 0.0 D Basophils % 0.2 Nucleated RBC % 0 PT with INR INR PTT (Actin FS) Anticoagulation Therapy Puncture Site ABG pH ABG pCO2 at Pt Temp ABG pO2 at Pt Temp ABG HCO3 ABG O2 Sat (Measured) ABG O2 Content ABG Base Excess Bradley Test VBG pH POC VBG pCO2 POC VBG pO2 Mixed VBG HCO3 O2 Delivery Device Oxygen Flow Rate Vent Mode Vent Rate Mechanical Rate Pressure Support Vent Sodium Potassium Chloride Carbon Dioxide Anion Gap BUN Creatinine Creat Clearance w eGFR POC Glucometer 158 Random Glucose Lactic Acid Calcium Phosphorus Magnesium Total Bilirubin AST ALT Alkaline Phosphatase Creatine Kinase CK-MB (CK-2) Troponin I B-Natriuretic Peptide Total Protein Albumin Triglycerides Cholesterol Total LDL Cholesterol HDL Cholesterol Influenza A (Rapid) Negative Influenza B (Rapid) Negative Blood Type Antibody Screen 09/01/18 09/01/18 07:24 07:24 WBC RBC Hgb Hct MCV MCH MCHC RDW Plt Count MPV Absolute Neuts (auto) Neutrophils % Lymphocytes % Monocytes % Eosinophils % Basophils % Nucleated RBC % PT with INR 41.90 H INR 3.51 H PTT (Actin FS) Anticoagulation Therapy Puncture Site ABG pH ABG pCO2 at Pt Temp ABG pO2 at Pt Temp ABG HCO3 ABG O2 Sat (Measured) ABG O2 Content ABG Base Excess Bradley Test VBG pH POC VBG pCO2 POC VBG pO2 Mixed VBG HCO3 O2 Delivery Device Oxygen Flow Rate Vent Mode Vent Rate Mechanical Rate Pressure Support Vent Sodium 142 Potassium 4.6 Chloride 109 H Carbon Dioxide 24 Anion Gap 9 BUN 42 H Creatinine 1.7 H Creat Clearance w eGFR 38.59 POC Glucometer Random Glucose 134 H Lactic Acid Calcium 7.9 L Phosphorus 3.6 Magnesium 2.3 Total Bilirubin 0.6 AST 20 ALT 14 Alkaline Phosphatase 72 Creatine Kinase CK-MB (CK-2) Troponin I 0.08 H B-Natriuretic Peptide 65120.9 H Total Protein 7.0 Albumin 3.0 L Triglycerides 98 Cholesterol 104 Total LDL Cholesterol 55 HDL Cholesterol 35 L Influenza A (Rapid) Influenza B (Rapid) Blood Type Antibody Screen Active Medications Generic Name Dose Route Start Last Admin Trade Name Freq PRN Reason Stop Dose Admin Acetaminophen 650 mg 08/31/18 16:31 Tylenol - PO Q6H PRN PAIN LEVEL 4 - 6 Albuterol Sulfate 1 amp 08/31/18 16:28 Ventolin 0.083% Nebulizer Soln - NEB Q4H PRN SHORT OF BREATH/WHEEZING Albuterol/Ipratropium 1 amp 08/31/18 20:00 09/01/18 08:28 Duoneb - NEB 1 amp RQID TAWANNA Administration Amlodipine Besylate 10 mg 09/01/18 10:00 Norvasc - PO DAILY TAWANNA Cholecalciferol 1,000 unit 09/01/18 10:00 Vitamin D3 - PO DAILY TAWANNA Gabapentin 600 mg 08/31/18 22:00 08/31/18 21:19 Neurontin - PO 600 mg BID TAWANNA Administration Lactated Ringer's 1,000 ml in 1,000 mls @ 75 mls/hr 09/01/18 09:45 09/01/18 09:55 Lactated Ringers Solution IV 75 mls/hr ASDIR TAWANNA Administration Piperacillin Sod/Tazobactam 50 mls @ 100 mls/hr 09/01/18 18:00 Sod 3.375 gm/ Dextrose IVPB Q8H-IV TAWANNA Protocol Methylprednisolone Sodium Succinate 40 mg 09/01/18 09:15 09/01/18 09:55 Solu-Medrol - IVPUSH 40 mg Q6H-IV TAWANNA Administration Polyethylene Glycol 17 gm 08/31/18 22:00 08/31/18 21:19 Miralax (For Daily Use) - PO 17 mg BID TAWANNA Administration ASSESSMENT/PLAN:83 yom with PMHx of afib on coumadin, ?neoplasm of skin, stage III decubitus ulcer left buttock, Hypothyroidism, Obesity, bed bound sent from [facility] admitted with concerns for aspiration -Acute hypoxic respiratory failure: likely from pneumonia aspiration vs healthcare with ? copd exabration ct chest : sjows b/l pneumonia ID on case: started on zosyn on 08/31/18 sputum culture: pt didn't give a sample started on solumedrol 40mg q6h duoneb q6h tawanna o2 to keep spo2>90 aspiration precaution speech and swallow keep head end elevated frequent chest pt. spirometry increase in wbc can be because of infection or steroid DIANNA: likely obstructive but contrast induced cannot be ruled out. need urine studies start iv fluid as pt is clinically dry penile lesion with groin ulcer ( as per record ulcer is old) CT abdomen and pelvis: no peritoneal or inguinal lymphnode urology consult: for penile lesion and thorpe insertion as pt is retaing urine. Dr wilson service called and message left. hold coumadin for now growth in penis is bleeding. monitor for urine retention troponemia likely because of decrease clearance because of dianna or demand ischemia no new ekg changes cardiology consult echo -Afib on coumadin hold Coumadin because of supratheraputic inr 3.5 -HTN hold andrzej continue amlodipine - Stage III decubitus ulcer left buttock change position q2h air mattress -Obesity fluid d51/2ns 75 ml/hr electrolyte repeat in am nutrition:regular low salt diet dvt pro on coumadin gi pro: protonix 40 daliy code DNR but ok with intubation. speech and swallow evaluation pending dispo tele Visit type - Emergency Visit Emergency Visit: Yes ED Registration Date: 08/31/18 Care time: The patient presented to the Emergency Department on the above date and was hospitalized for further evaluation of their emergent condition. - New Patient This patient is new to me today: No - Critical Care Critical Care patient: No
--- NOTE | 2018-09-01 11:40 | CON.PULM ---
Consult Consult Specialty:: PULM/CCM Referred by:: CHANO Reason for Consultation:: SOB - History of Present Illness Chief Complaint: SOB History of Present Illness: 83 M, obesity, HTN, AFib, on coumadin, decubitus ulcers, neuropathy, chronic groin ulcer, and neoplasm of skin. Admitted via the ER due to a suspicion of aspiration. Reports increasing congested cough and progressive shortness of breath. Noted to be hypoxic to 79% and started on supplemental NC O2. CT: Bilateral infiltrates / small pleural effusions / Right paratracheal adenopathy 2.3 cm x 1.3 cm - History Source History Provided By: Patient, Medical Record Limitations to Obtaining History: Poor Historian - Past Medical History Pulmonary: Yes: Pneumonia. No: O2 Dependent, Previously Intubated, Pulmonary Embolus, Pulmonary Fibrosis, Sleep Apnea - Alcohol/Substance Use Hx Alcohol Use: No - Smoking History Smoking history: Unknown if ever smoked Have you smoked in the past 12 months: No Home Medications - Allergies Allergies/Adverse Reactions: Allergies Allergy/AdvReac Type Severity Reaction Status Date / Time No Known Allergies Allergy Verified 08/31/18 15:40 - Home Medications Home Medications: Ambulatory Orders Aa/Hydrolyzed Collagen, Whey [Lps 15-30 Liquid] 30 ml PO DAILY 09/01/18 Acetaminophen 1,000 mg PO BID 09/01/18 Amlodipine Besylate [Norvasc -] 10 mg PO DAILY 09/01/18 Cholecalciferol (Vitamin D3) [Vitamin D3] 1,000 unit PO DAILY 09/01/18 Gabapentin 600 mg PO BID 09/01/18 Lisinopril 5 mg PO DAILY 09/01/18 Warfarin Sodium [Coumadin] 4 mg PO HS 09/01/18 Review of Systems - Review of Systems Constitutional: reports: Fever. denies: Chills Eyes: reports: No Symptoms HENT: reports: No Symptoms Neck: reports: No Symptoms Cardiovascular: reports: Shortness of Breath. denies: Chest Pain, Edema Respiratory: reports: Cough, SOB, SOB on Exertion. denies: Hemoptysis, Snoring , Wheezing Gastrointestinal: reports: No Symptoms Genitourinary: reports: No Symptoms Breasts: reports: No Symptoms Reported Musculoskeletal: reports: No Symptoms Integumentary: reports: No Symptoms Neurological: reports: No Symptoms Endocrine: reports: No Symptoms Hematology/Lymphatic: reports: No Symptoms Psychiatric: reports: No Symptoms Physical Exam Vital Sings: Vital Signs Temperature 98.5 F 09/01/18 07:07 Pulse Rate 88 09/01/18 07:07 Respiratory Rate 19 09/01/18 07:07 Blood Pressure 152/45 L 09/01/18 07:07 O2 Sat by Pulse Oximetry (%) 94 L 09/01/18 07:07 Constitutional: Yes: No Distress, Obese Eyes: Yes: Conjunctiva Clear, EOM Intact HENT: Yes: Atraumatic, Normocephalic Neck: Yes: Supple, Trachea Midline Cardiovascular: Yes: Pulse Irregular Respiratory: Yes: Cough, Diminished, On Nasal O2, Rhonchi, SOB, SOB on Exertion. No: Accessory Muscle Use, Rales, Stridor, Tachypnea, Wheezes ...Inspection: Yes: WNL ...Clubbing: No Gastrointestinal: Yes: Normal Bowel Sounds, Soft, Abdomen, Obese Renal/: Yes: WNL Musculoskeletal: Yes: WNL Extremities: Yes: WNL Edema: No Peripheral Pulses WNL: Yes Integumentary: Yes: Pressure Ulcer Neurological: Yes: Alert Psychiatric: Yes: Alert Labs: CBC, BMP 09/01/18 07:24 09/01/18 07:24 ABG Results ABG pH 7.38 (7.35-7.45) 08/31/18 12:43 ABG pCO2 at Pt Temp 42.8 mmHg (35-45) 08/31/18 12:43 ABG pO2 at Pt Temp 69.1 mmHg (68-100) 08/31/18 12:43 ABG HCO3 24.8 meq/L (22-26) 08/31/18 12:43 ABG O2 Sat (Measured) 92.7 % (90-98.9) 08/31/18 12:43 ABG O2 Content 15.2 % vol (15-22) 08/31/18 12:43 ABG Base Excess 0.1 meq/l (-2-2) 08/31/18 12:43 Imaging - Results Chest X-ray: Report Reviewed, Image Reviewed Cat Scan: Report Reviewed, Image Reviewed Problem List - Problems (1) Afib Code(s): I48.91 - UNSPECIFIED ATRIAL FIBRILLATION (2) Pleural effusion Code(s): J90 - PLEURAL EFFUSION, NOT ELSEWHERE CLASSIFIED (3) SOB (shortness of breath) Code(s): R06.02 - SHORTNESS OF BREATH (4) Decubitus ulcer Code(s): L89.90 - PRESSURE ULCER OF UNSPECIFIED SITE, UNSPECIFIED STAGE (5) Aspiration into airway Code(s): T17.908A - UNSP FB IN RESP TRACT, PART UNSP CAUSING OTH INJURY, INIT Qualifiers: Encounter type: initial encounter Qualified Code(s): T17.908A - Unspecified foreign body in respiratory tract, part unspecified causing other injury, initial encounter Assessment/Plan ABX per ID O2 as needed to maintain saturation Medrol BD TX Aspiration precautions Check sputum if able Will follow Thank you. Dr Bronson
[2018-09-01] MEDS ORDERED: PANTOPRAZOLE 40 MG TABLET (FP) PO SCH (11:45)
[2018-09-01 11:53] LABS: ANISOCYTOSIS 1+; MACROCYTOSIS 1+; PLATELET ESTIMATE NORMAL
--- NOTE | 2018-09-01 12:45 | CONSULT ---
Admitting History and Physical - Primary Care Physician PCP: Dm Flores - Admission History of Present Illness: 83 yom with PMHx of afib on coumadin, ?neoplasm of skin, stage III decubitus ulcer left buttock, Hypothyroidism, Obesity, bed bound sent from [facility] admitted with concerns for aspiration -Acute hypoxic respiratory failure: likely from pneumonia aspiration vs healthcare with ? copd exabration ID - HCAP V. ASPIRATION R/O SEPSIS SECONDARY TO PNEUMONIA LEUKOCYTOSIS MULTIFACTORIAL ( PNEUMONIA, STEROIDS ) Per pulmonary-Reports increasing congested cough and progressive shortness of breath. Noted to be hypoxic to 79% and started on supplemental NC O2. This is my first consult with this pt Pt seen in ED. History Source: Medical Record Limitations to Obtaining History: Clinical Condition - Past Medical History Pulmonary: Yes: Pneumonia. No: O2 Dependent, Previously Intubated, Pulmonary Embolus, Pulmonary Fibrosis, Sleep Apnea - Smoking History Smoking history: Unknown if ever smoked Have you smoked in the past 12 months: No - Alcohol/Substance Use Hx Alcohol Use: No History - Admission Reason For Visit: ASPIRATION INTO AIRWAY - Diagnostics CT Scan: Report Reviewed (CT: Bilateral infiltrates / small pleural effusions / Right paratracheal adenopathy 2.3 cm x 1.3 cm) - General Mental Status: Awake and Alert, Able to Follow Commands Attention: Mild Impairment Ability to Follow Directions: Fair Head/Neck Control: Fair - Hearing Hearing: Functional Speech Evaluation - Communication Primary Language: MALIAN - Speech Production Able to Make Needs Known: Yes: WNL Intelligibility: Yes: Mildly Impaired - Speech Characteristics Voice Loudness: Normal Voice Phonatory-based Quality: Yes: Vocal Wetness (gurgly voice, choking on secretions. Refused to be suctioned. Advised to cough and expectorate, but unable to bring up secretions.) Nasal Resonance: Normal Articulation: Yes: Precise - Language/Auditory Comprehension Follows: Yes: 1 Stage Simple Commands Observation: Able to respond to yes/no queries: Yes, Yes/No Confusion: No, Comprehends Conversational Speech: Yes - Language/Verbal Expression Able to Communicate Wants and Needs: Yes: WNL - Swallow Evaluation/Bedside Assessment Current Nutritional Intake: Regular, Thin Liquids Recommendations - Speech Evaluation, Impression/Plan Impression: gurgly voice, choking on secretions. Refused to be suctioned. Advised to cough and expectorate, but unable to bring up secretions. c/w aspiration - Dysphagia Impressions/Plan Swallowing Skills: Impaired Dysphagia Impressions: Profound Impairment, Suspect Aspiration *Silent aspiration: cannot be R/O at bedside Recommendations: Modified Barium Swallow (when medically stable.), Other ( Suction wilber-pharynx, Maintain HOB elevated. Monitor pulmonary status/O2 sat/ mentation) - Recommendations Diet Consistency: NPO Liquids: NPO
--- NOTE | 2018-09-01 13:12 | CONSULT ---
Consult Consult Specialty:: Nephrology Reason for Consultation:: DIANNA - History of Present Illness Chief Complaint: sent in for possible asspitation PNA History of Present Illness: Pt is an 83 year old male with pmhx of obesity, a-fib, HTN, hypothyroidism, left buttock pressure ulcer, and neuropathy who was send to the ER to evaluate for aspiration PNA. He was admitted for treatment. He was found to have elevated creatinine today. He denies dysuria. He is a poor historian. He appears weak at this time. - History Source History Provided By: Patient, Medical Record Limitations to Obtaining History: Clinical Condition - Past Medical History Cardio/Vascular: Yes: HTN Pulmonary: Yes: Pneumonia - Alcohol/Substance Use Hx Alcohol Use: No - Smoking History Smoking history: Unknown if ever smoked Have you smoked in the past 12 months: No Home Medications - Allergies Allergies/Adverse Reactions: Allergies Allergy/AdvReac Type Severity Reaction Status Date / Time No Known Allergies Allergy Verified 08/31/18 15:40 - Home Medications Home Medications: Ambulatory Orders Aa/Hydrolyzed Collagen, Whey [Lps 15-30 Liquid] 30 ml PO DAILY 09/01/18 Acetaminophen 1,000 mg PO BID 09/01/18 Amlodipine Besylate [Norvasc -] 10 mg PO DAILY 09/01/18 Cholecalciferol (Vitamin D3) [Vitamin D3] 1,000 unit PO DAILY 09/01/18 Gabapentin 600 mg PO BID 09/01/18 Lisinopril 5 mg PO DAILY 09/01/18 Warfarin Sodium [Coumadin] 4 mg PO HS 09/01/18 Family Disease History - Family Disease History Family History: Unable to Obtain Review of Systems - Review of Systems Constitutional: reports: Malaise Eyes: reports: No Symptoms HENT: reports: No Symptoms Neck: reports: No Symptoms Cardiovascular: reports: Shortness of Breath Respiratory: reports: Cough, SOB, SOB on Exertion Genitourinary: reports: Other (lesion on penis) Musculoskeletal: reports: Muscle Weakness Physical Exam Vital Signs: Vital Signs Temperature 98.5 F 09/01/18 07:07 Pulse Rate 88 09/01/18 07:07 Respiratory Rate 09/01/18 07:07 Blood Pressure 152/45 L 09/01/18 07:07 O2 Sat by Pulse Oximetry (%) 94 L 09/01/18 07:07 Constitutional: Yes: Calm Eyes: Yes: Conjunctiva Clear Cardiovascular: Yes: S1, S2 Respiratory: Yes: On Nasal O2, Rhonchi Gastrointestinal: Yes: Soft Renal/: Yes: Incontinence Musculoskeletal: Yes: Muscle Weakness Edema: No Integumentary: Yes: Other (lesion on penis) Neurological: Yes: Lethargy Labs: CBC, BMP 09/01/18 07:24 09/01/18 07:24 Laboratory Tests 08/31/18 08/31/18 09/01/18 12:00 12:00 07:24 WBC 9.2 20.9 H Hgb 10.6 L Sodium 142 Potassium 4.6 Chloride 108 H Anion Gap 5 L BUN 26 H Creatinine 1.0 B-Natriuretic Peptide 09/01/18 07:24 WBC Hgb Sodium 142 Potassium 4.6 Chloride Anion Gap BUN 42 H Creatinine 1.7 H B-Natriuretic Peptide 76619.9 H Imaging - Results Chest X-ray: Report Reviewed Problem List - Problems (1) DIANNA (acute kidney injury) Code(s): N17.9 - ACUTE KIDNEY FAILURE, UNSPECIFIED (2) Afib Code(s): I48.91 - UNSPECIFIED ATRIAL FIBRILLATION (3) Aspiration into airway Code(s): T17.908A - UNSP FB IN RESP TRACT, PART UNSP CAUSING OTH INJURY, INIT Qualifiers: Encounter type: initial encounter Qualified Code(s): T17.908A - Unspecified foreign body in respiratory tract, part unspecified causing other injury, initial encounter (4) SOB (shortness of breath) Code(s): R06.02 - SHORTNESS OF BREATH Assessment/Plan Current Medications Generic Name Dose Route Start Last Admin Trade Name Freq PRN Reason Stop Dose Admin Acetaminophen 650 mg 08/31/18 16:31 Tylenol - PO Q6H PRN PAIN LEVEL 4 - 6 Albuterol Sulfate 1 amp 08/31/18 16:28 Ventolin 0.083% Nebulizer Soln - NEB Q4H PRN SHORT OF BREATH/WHEEZING Albuterol/Ipratropium 1 amp 08/31/18 20:00 09/01/18 08:28 Duoneb - NEB 1 amp RQID ARTHUR Administration Amlodipine Besylate 10 mg 09/01/18 10:00 Norvasc - PO DAILY ARTHUR Cholecalciferol 1,000 unit 09/01/18 10:00 Vitamin D3 - PO DAILY ARTHUR Gabapentin 600 mg 08/31/18 22:00 08/31/18 21:19 Neurontin - PO 600 mg BID ARTHUR Administration Lactated Ringer's 1,000 ml in 1,000 mls @ 75 mls/hr 09/01/18 09:45 09/01/18 09:55 Lactated Ringers Solution IV 75 mls/hr ASDIR ARTHUR Administration Piperacillin Sod/Tazobactam 50 mls @ 100 mls/hr 09/01/18 18:00 Sod 3.375 gm/ Dextrose IVPB Q8H-IV ARTHUR Protocol Methylprednisolone Sodium Succinate 40 mg 09/01/18 09:15 09/01/18 09:55 Solu-Medrol - IVPUSH 40 mg Q6H-IV ARTHUR Administration Pantoprazole Sodium 40 mg 09/01/18 11:45 Protonix - PO DAILY ARTHUR Polyethylene Glycol 17 gm 08/31/18 22:00 08/31/18 21:19 Miralax (For Daily Use) - PO 17 mg BID ARTHUR Administration Microbiology 08/31/18 12:00 Blood - Peripheral Venous Blood Culture - Preliminary NO GROWTH OBTAINED AFTER 24 HOURS, INCUBATION TO CONTINUE FOR 4 DAYS. Impression 1. DIANNA 2. sepsis 3. PNA 4. hx HTN 5. a-fib 6. hypothyroidism Plan - check ua, electrolytes and faro dealer - check bladder ultrasound - wbc is higher today - cont to follow blood cultures - urology eval - discussed with medical team Dr Lyon
--- NOTE | 2018-09-01 15:03 | CON.GU ---
Consult Consult Specialty:: Referred by:: ED Reason for Consultation:: urinary retention, unable to pass thorpe - History of Present Illness Chief Complaint: urinary retention, unable to pass thorpe History of Present Illness: 83 year old male, DNR, who presents with pneumonia was noted to have a large post void residual. Attempts by the ER staff at catheterization were unsuccessful. The patient is not reliable though reports that he is voiding well. He is very constipated on CT scan - History Source History Provided By: Patient, Medical Record Limitations to Obtaining History: Dementia - Past Medical History Cardio/Vascular: Yes: HTN Pulmonary: Yes: Pneumonia Renal/: No: Renal Failure, Renal Inusuff, BPH, Cancer, Hematuria, Hemodialysis , Neurogenic Bladder, Renal Calculi, UTI, Other - Alcohol/Substance Use Hx Alcohol Use: No - Smoking History Smoking history: Unknown if ever smoked Have you smoked in the past 12 months: No Home Medications - Allergies Allergies/Adverse Reactions: Allergies Allergy/AdvReac Type Severity Reaction Status Date / Time No Known Allergies Allergy Verified 08/31/18 15:40 - Home Medications Home Medications: Ambulatory Orders Aa/Hydrolyzed Collagen, Whey [Lps 15-30 Liquid] 30 ml PO DAILY 09/01/18 Acetaminophen 1,000 mg PO BID 09/01/18 Amlodipine Besylate [Norvasc -] 10 mg PO DAILY 09/01/18 Cholecalciferol (Vitamin D3) [Vitamin D3] 1,000 unit PO DAILY 09/01/18 Gabapentin 600 mg PO BID 09/01/18 Lisinopril 5 mg PO DAILY 09/01/18 Warfarin Sodium [Coumadin] 4 mg PO HS 09/01/18 Review of Systems - Review of Systems Genitourinary: reports: No Symptoms Physical Exam- Vital Signs: Vital Signs Temperature 98.5 F 09/01/18 07:07 Pulse Rate 88 09/01/18 07:07 Respiratory Rate 19 09/01/18 07:07 Blood Pressure 152/45 L 09/01/18 07:07 O2 Sat by Pulse Oximetry (%) 94 L 09/01/18 07:07 Gastrointestinal: Yes: Other (necrotic mass with open skin ulcer along the medial aspect of the right inguinal nodes.) Penis: Yes: Condyloma, Phimosis Labs: CBC, BMP 09/01/18 07:24 09/01/18 07:24 Imaging - Results Cat Scan: Report Reviewed (no deep pelvic or inguinal nodes appreciated on CT despite the physcial exam) Problem List - Problems (1) Penile cancer Assessment/Plan: patient with condylomatous mass replacing the glans penis and obscuring the urethral meatus. Unable to pass a catheter. 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 However the CT scan is negative (2) Urinary retention Assessment/Plan: unable to pass thorpe. His PVR at present is only 26cc. His fecal impaction is contributing to his retetion, Recommend aggressive bowel management. If he is in retention then recommend Interventional Radiology consult for percutaneous suprapubic tube placement. Code(s): R33.9 - RETENTION OF URINE, UNSPECIFIED (3) Inguinal ulcer Assessment/Plan: see above. Code(s): L98.499 - NON-PRESSURE CHRONIC ULCER OF SKIN OF SITES W UNSP SEVERITY
--- NOTE | 2018-09-01 15:06 | ECHO ---
Name: DIANNE, KENDAL Exam:Adult Echocardiogram Study Date: 09/01/2018 09:09 AM Age: 83 yrs Reason For Study: SOB Height: 70 in Weight: 232 lb BSA: 2.2 m2 MMode/2D Measurements & Calculations IVSd: 1.2 cm Ao root diam: 3.7 cm LVIDd: 5.5 cm LA dimension: 5.4 cm LVIDs: 4.2 cm ACS: 2.0 cm LVPWd: 0.93 cm IVSs: 1.2 cm LVPWs: 1.2 cm EDV(Teich): 149.9 ml ESV(Teich): 80.4 ml Doppler Measurements & Calculations MV E max xavi: 99.7 cm/sec Ao V2 max: 110.5 cm/sec MV A max xavi: 33.1 cm/sec Ao max P.9 mmHg MV E/A: 3.0 MR max xavi: 305.4 cm/sec TR max xavi: 277.5 cm/sec MR max P.3 mmHg TR max P.9 mmHg Med Peak E' Xavi: 7.8 cm/sec Med E/e': 12.8 Lat Peak E' Xavi: 7.6 cm/sec Lat E/e': 13.1 Procedure A complete two-dimensional transthoracic echocardiogram was performed (2D, M-mode, Doppler and color flow Doppler). Left Ventricle The left ventricle is normal in size. Left ventricular systolic function is mildly reduced. Ejection Fraction = 45-50%. There is mild global hypokinesis of the left ventricle. Right Ventricle The right ventricle is mild to moderately dilated. The right ventricular systolic function is normal. Atria The left atrium is severely dilated. The right atrium is severely dilated. Mitral Valve There is mild mitral valve thickening. There is mild mitral regurgitation. Tricuspid Valve There is mild tricuspid regurgitation. Right ventricular systolic pressure is normal. Aortic Valve No hemodynamically significant valvular aortic stenosis. No aortic regurgitation is present. Pulmonic Valve There is no pulmonic valvular regurgitation. Great Vessels The aortic root is normal size. Pericardium/Pleura There is no pericardial effusion. Interpretation Summary The left ventricle is normal in size. Left ventricular systolic function is mildly reduced. There is mild global hypokinesis of the left ventricle. The right ventricle is mild to moderately dilated. The right ventricular systolic function is normal. The left atrium is severely dilated. The right atrium is severely dilated. There is mild mitral regurgitation. There is mild tricuspid regurgitation. MD Juan M Mejia 09/01/2018 03:05 PM
[2018-09-01] MEDS: GABAPENTIN 300 MG CAPSULE (FP) PO SCH (15:24)
[2018-09-01] MEDS: POLYETHYLENE GLYCOL 3350 119 GM BTL PO SCH (15:24)
--- NOTE | 2018-09-01 15:32 | CONS ---
DATE OF CONSULTATION: DATE OF DICTATION: 09/01/2018 The patient is an 83-year-old male who is evaluated for aspiration pneumonia. History was obtained from the chart, as he cannot give a reliable history. He is a longterm resident. He was transferred from the longterm to the emergency room after he was noted to have congestion and gurgling. He was noted to have decreased O2 saturations and was sent for probable aspiration pneumonia. The patient was evaluated in the emergency room, where a CAT scan of the chest was performed after his O2 saturation was noted to be in the high 70s. The CAT scan reveals bibasilar infiltrate as well as right upper and left upper lobe consolidations. He was empirically treated with vancomycin and Unasyn. He is unable to give any additional history. He is audibly congested. The patient denies any complaints. He denies any chest pain or shortness of breath; however, he does look slight short of breath at rest on room air. He has no recent hospitalizations on record. No reports of high-grade fever or shaking chills. No complaints of chest pain. No reports of purulent sputum production or hemoptysis. Past medical history positive for atrial fibrillation, hypertension, hypothyroidism, left buttock ulcer, peripheral neuropathy, chronic right groin ulcer. No known allergies. MEDICATIONS: Tylenol, albuterol, Neurontin, methylprednisolone, Zosyn, vancomycin. SOCIAL HISTORY: He is a longterm resident. Positive history of tobacco use, per chart. SYSTEMS REVIEW: Neurologic: No loss of consciousness, seizure activity, or focal weakness. Cardiac: Negative chest pain or palpitations. Respiratory: As per HPI. Gastrointestinal: Negative vomiting or diarrhea. Genitourinary: Positive for chronic groin ulcer and penile lesion. LABORATORY DATA: White count 20.9, 87 neutrophils, 5 lymphocytes, 7 monocytes. Hematocrit 32.3, platelet count 210. BUN 42, creatinine 1.7, flu swab negative. Cultures are pending. PHYSICAL EXAMINATION: General: He is an elderly male. He is slightly short of breath at rest on room air. Vital Signs: Temperature 98.5. Blood pressure 152/45. Pulse 88, regular. Respirations 17 per minute. Eyes: Sclerae anicteric. Heart Sounds: S1, S2. Lungs: Coarse rhonchi bilaterally. Abdomen: Obese, soft, nontender. Genitalia: There is an exophytic lesion present on the right groin. He was noted to have bleeding from the urethral meatus. Unable to fully retract the genitalia to examine the penile shaft. No gross purulence was noted. Extremities: Negative for edema. Skin: Left ischial decubitus ulcer. IMPRESSION: 1. Probable aspiration versus healthcare-acquired pneumonia. 2. Rule out sepsis secondary to pneumonia. 3. Leukocytosis, likely steroid induced. 4. Azotemia. Pending sepsis workup, empiric Zosyn. Aspiration precautions. Will follow. Thank you for the kind referral. MATTHEW KING M.D. [id number]
--- NOTE | 2018-09-01 15:40 | EKG ---
Test Reason : Blood Pressure : / mmHG Vent. Rate : 077 BPM Atrial Rate : 052 BPM P-R Int : 000 ms QRS Dur : 144 ms QT Int : 416 ms P-R-T Axes : 000 038 -04 degrees QTc Int : 470 ms ATRIAL FIBRILLATION WITH PREMATURE VENTRICULAR OR ABERRANTLY CONDUCTED COMPLEXES RIGHT BUNDLE BRANCH BLOCK ABNORMAL ECG WHEN COMPARED WITH ECG OF 31-AUG-2018 11:24, NO SIGNIFICANT CHANGE WAS FOUND Confirmed by MILIND PATEL, VERNON ([id number]) on 09/01/2018 3:40:27 PM Referred By: MAVERICK CAMPOS Confirmed By:VERNON VAZ MD
[2018-09-01] MEDS ORDERED: SODIUM PHOSPHATE/NA BIPHOS 133 ML ENEMA PR ONE (15:45)
--- NOTE | 2018-09-01 16:04 | CON.CARD ---
Consult Consult Specialty:: Cardiology Referred by:: Medicine Reason for Consultation:: elevated troponin - History of Present Illness Chief Complaint: shortness of breath History of Present Illness: 83M h/o obesity, afib on coumadin, HTN, pressure ulcers p/w shortness of breath. Patient felt at baseline but noted desaturation by shelter, in ER sat 79% and was started on 4L of O2. Treated with abx for aspiration pna. also hx of penile ulcer which was noted to be bleeding, coumadin was held. complains of dyspnea. no chest pain, palps, dizziness. - Past Medical History Cardio/Vascular: Yes: HTN Pulmonary: Yes: Pneumonia. No: O2 Dependent, Previously Intubated, Pulmonary Embolus, Pulmonary Fibrosis, Sleep Apnea Renal/: No: Renal Failure, Renal Inusuff, BPH, Cancer, Hematuria, Hemodialysis , Neurogenic Bladder, Renal Calculi, UTI, Other - Alcohol/Substance Use Hx Alcohol Use: No - Smoking History Smoking history: Unknown if ever smoked Have you smoked in the past 12 months: No Home Medications - Allergies Allergies/Adverse Reactions: Allergies Allergy/AdvReac Type Severity Reaction Status Date / Time No Known Allergies Allergy Verified 08/31/18 15:40 - Home Medications Home Medications: Ambulatory Orders Aa/Hydrolyzed Collagen, Whey [Lps 15-30 Liquid] 30 ml PO DAILY 09/01/18 Acetaminophen 1,000 mg PO BID 09/01/18 Amlodipine Besylate [Norvasc -] 10 mg PO DAILY 09/01/18 Cholecalciferol (Vitamin D3) [Vitamin D3] 1,000 unit PO DAILY 09/01/18 Gabapentin 600 mg PO BID 09/01/18 Lisinopril 5 mg PO DAILY 09/01/18 Warfarin Sodium [Coumadin] 4 mg PO HS 09/01/18 Family Disease History - Family Disease History Family History: Unremarkable Review of Systems - Review of Systems Constitutional: reports: No Symptoms Eyes: reports: No Symptoms HENT: reports: No Symptoms Neck: reports: No Symptoms Cardiovascular: reports: No Symptoms Respiratory: reports: SOB Gastrointestinal: reports: No Symptoms Musculoskeletal: reports: No Symptoms Integumentary: reports: No Symptoms Neurological: reports: No Symptoms Endocrine: reports: No Symptoms Hematology/Lymphatic: reports: No Symptoms Psychiatric: reports: No Symptoms Vital Signs: Vital Signs Temperature 98.5 F 09/01/18 07:07 Pulse Rate 88 09/01/18 07:07 Respiratory Rate 19 09/01/18 07:07 Blood Pressure 152/45 L 09/01/18 07:07 O2 Sat by Pulse Oximetry (%) 94 L 09/01/18 07:07 Constitutional: Yes: No Distress, Calm Eyes: Yes: Conjunctiva Clear, EOM Intact HENT: Yes: Atraumatic, Normocephalic Neck: Yes: Supple, Trachea Midline Respiratory: Yes: Regular, Rhonchi, Wheezes Gastrointestinal: Yes: Normal Bowel Sounds, Soft Cardiovascular: Yes: Pulse Irregular JVD: No Carotid Bruit: No PMI: Non-Displaced Heart Sounds: Yes: S1, S2 Musculoskeletal: No: Back Pain Extremities: No: Cold Edema: No Peripheral Pulses WNL: Yes Peripheral Pulses: 1+ Left Doralis Pedis, 1+ Right Dorsalis Pedis Integumentary: No: Jaundice Neurological: Yes: Alert, Oriented Psychiatric: No: Agitated - Other Data Labs, Other Data: CBC, BMP 09/01/18 07:24 09/01/18 07:24 INR, PTT INR 3.51 (0.83-1.09) H 09/01/18 07:24 Troponin, BNP 09/01/18 09/01/18 07:24 13:38 Troponin I 0.08 H 0.07 H B-Natriuretic Peptide 49962.9 H Troponin, BNP 09/01/18 09/01/18 07:24 13:38 Troponin I 0.08 H 0.07 H B-Natriuretic Peptide 43759.9 H Assessment/Plan CXR: no acute process EKG: afib, RBBB, PVCs CT chest bibasilar consolidation, PNA echo 08/2018 mildly reduced LV function, mild global hypokinesis of LV, RV mild to mod dilated, nl RV function, LA/RA severely dilated mild MR, mild TR Shortness of breath, PNA - on abx, steroids per pulm, primary elevated troponin - mildly elevated, indeterminate range, in setting of DIANNA - EKG no ischemic changes - unlikely ACS cardiomyopathy - mildly reduced LV function on echo today - BNP >44495 - euvolemic on exam, would defer diuretics at this point afib - on coumadin at home, held for bleeding at penile lesion - would restart coumadin if no procedures planned, holding for now DIANNA - may be obstructive, urology and renal consulted HTN - stable on home meds, continue
[2018-09-01] MEDS ORDERED: FUROSEMIDE 40 MG/4 ML INJECTABLE VIAL ONE (16:53)
[2018-09-01] MEDS ORDERED: MORPHINE SULFATE 2 MG/ML VIAL IVPUSH PRN (17:07)
[2018-09-01] MEDS ORDERED: SCOPOLAMINE HYDROBROMIDE 1 PATCH PATCH.TD72 TD SCH (17:15)
[2018-09-01] MEDS ORDERED: FUROSEMIDE 40 MG/4 ML INJECTABLE VIAL IVPUSH ONE (17:30)
[2018-09-01] MEDS ORDERED: MORPHINE SULFATE 2 MG/ML VIAL ONE (18:04)
[2018-09-01 18:56] VITALS: BP 145/71; PULSE 84; TEMP 98.1
--- NOTE | 2018-09-01 23:08 | PN ---
Progress Note (short form) - Note Progress Note: NOTE Pt seen and examined at bedside. Pt unresponsive to sternal rub. No pupillary/reflex noted bilaterally. B/l carotid and radial pulses non-palpable. No heart sounds heard. No lungs sounds heard. TIME OF : 9:45pm. 09/01/18. Attempted to contact family multiple times. Unable to leave message or call back number as voicemail inbox is full. Will make primary team aware.
--- NOTE | 2018-09-02 10:58 | DS ---
Physical Exam: SUBJECTIVE: Patient seen and examined last on 09/01/2018 at 6 pm, reported dyspnea but refusing to keep oxygen on. Denied any pain. OBJECTIVE: Vital Signs Period Temp Pulse Resp BP Sys/Armstrong Pulse Ox Last 24 Hr 98.1 F-98.4 F 79-84 22-23 141-145/67-71 PHYSICAL EXAM as per 09/01/2018 GENERAL: tachypneic, use of accessory muscles of respiration HEAD: Normal with no signs of trauma. EYES: PERRL, extraocular movements intact, sclera anicteric, conjunctiva clear. ENT: Ears normal, nares patent, oropharynx clear without exudates, moist mucous membranes. NECK: soft, supple, no JVD noted LUNGS: coarse extensive rales bilaterally HEART: S1S2 regular ABDOMEN: Soft, obese, NT Genital: penile mass, skin lesion irregular suspicous for malignancy Right groin EXTREMITIES: 2+ pulses, warm, well-perfused, no edema. SKIN: Warm, dry, normal turgor, no rashes or lesions noted. LABS Laboratory Results - last 24 hr 09/01/18 09/01/18 09/01/18 07:24 07:24 13:38 Neutrophils % (Manual) 77.8 Band Neutrophils % 11.1 Lymphocytes % (Manual) 5.0 L Monocytes % (Manual) 5 Eosinophils % (Manual) 0.0 Basophils % (Manual) 0.0 Myelocytes % (Man) 1 Promyelocytes % (Man) 0 Blast Cells % (Manual) 0 Metamyelocytes 0 Hypochromia 0 Platelet Estimate Normal Polychromasia 0 Poikilocytosis 0 Anisocytosis 1+ Microcytosis 0 Macrocytosis 1+ Troponin I 0.07 H B-Natriuretic Peptide 87891.9 H HOSPITAL COURSE: Date of Admission:08/31/18 Date of Discharge: 09/02/18 Minutes to complete discharge: 35 Discharge Summary Reason For Visit: ASPIRATION INTO AIRWAY Hospital Course: 83 yom with PMHx of afib on coumadin, ?neoplasm of skin, stage III decubitus ulcer left buttock, Hypothyroidism, Obesity, bed bound sent from [facility] admitted with concerns for aspiration. patient was noted with multifocal aspiration pneumonia with pleural effusions, likely from aspiration. Infectious disease and pulmonary were consulted, he was placed on broad spectrum antibiotics. Patient was also found with Acute kidney injury and nephrology was consulted. He was noted with some troponin elevation which was suspected to be demand ischemia. His respiratory status progressively worsened. He had advanced directives from [facility] stating DNR. Extensive discussion was held with patient and health care proxy Rick (brother), patient strongly declined CPR/ intubation/Mask or aggressive measures and expressed wishes to focus on comfort. He on 09/01/2018 at 9:45 PM. Condition: - Instructions Disposition: This patient is new to me today: No Emergency Visit: Yes ED Registration Date: 08/31/18 Care time: The patient presented to the Emergency Department on the above date and was hospitalized for further evaluation of their emergent condition. Critical Care patient: No - Discharge Referral Referred to [facility] Med P.C.: No
== END 2018-09-02 00:24 | disposition expired | DRG 177 ==
LOC: JER 11:03 → JERBED 15:36 → J4S 09-01 18:28 → JERBED 09-01 18:33
PROVIDERS: ADMIT Hospitalist; ATTEND Hospitalist
DX: J69.0 Pneumonitis due to inhalation of food and vomit (principal); L89.323 Pressure ulcer of left buttock, stage 3; J96.01 Acute respiratory failure with hypoxia; I21.4 Non-ST elevation (NSTEMI) myocardial infarction; N17.9 Acute kidney failure, unspecified; L98.498 Non-pressure chronic ulcer of skin of other sites with other specified severity; I42.9 Cardiomyopathy, unspecified; J44.1 Chronic obstructive pulmonary disease with (acute) exacerbation; I24.8 Other forms of acute ischemic heart disease; E66.9 Obesity, unspecified; R33.9 Retention of urine, unspecified; Z68.33 Body mass index [BMI] 33.0-33.9, adult; I48.91 Unspecified atrial fibrillation; Z66 Do not resuscitate; Z74.01 Bed confinement status; Z79.01 Long term (current) use of anticoagulants; E03.9 Hypothyroidism, unspecified; G62.9 Polyneuropathy, unspecified; N48.89 Other specified disorders of penis; F17.210 Nicotine dependence, cigarettes, uncomplicated; L98.499 Non-pressure chronic ulcer of skin of other sites with unspecified severity; Z91.19 Patient's noncompliance with other medical treatment and regimen; K59.00 Constipation, unspecified; A63.0 Anogenital (venereal) warts; N47.1 Phimosis
CPT/HCPCS: 36415; 36600; 71045-TC-FY; 71260-TC; 74177-TC; 76775-TC; 76856-TC; 80053; 80061; 82550; 82553; 82803; 82962; 83605; 83721; 83735; 83880; 84100; 84484; 85025; 85610; 85730; 86850; 86900; 86901; 87040; 87081; 87186; 87804; 93005; 93010; 93306-TC; 94640; 99285-25